=== PATIENT | female | born 1970 | race Caucasian/White ===

== ENCOUNTER → 2017-05-22 | Outpatient (CLI) | payer MEDICAID ==
[2017-05-22 08:33] LABS: CH 24.3; CHCM 29.8; HCT 37.2 % (34.0-46.0); HDW 2.38; HGB 11.6 gm/dL (11.4-16.0); Hypochromasia Marked; MCH 25.5 pg (25.0-35.0); MCHC 31.2 g/dL (31.0-37.0); MCV 81.8 fL (80.0-100.0); Mean Platelet Volume 6.4; RBC 4.55 m/uL (3.80-5.40); WBC 6.8 k/uL (3.8-10.6)
[2017-05-22 09:03] LABS: Hemoglobin A1C 5.5 % (4.2-6.1)
[2017-05-22 09:08] LABS: ALT 44 U/L (9-52); AST 29 U/L (14-36); Alkaline Phosphatase 67 U/L (38-126); Anion Gap 9 mmol/L; Blood Urea Nitrogen 11 mg/dL (7-17); Calcium 9.5 mg/dL (8.4-10.2); Carbon Dioxide 26 mmol/L (22-30); Chloride 104 mmol/L (98-107); Glucose 86 mg/dL (74-99); Non-African American GFR(MDRD) >60 (>60 ml/min/1.73 sqM); Potassium 4.7 mmol/L (3.5-5.1); Sodium 139 mmol/L (137-145); Total Bilirubin 0.8 mg/dL (0.2-1.3); Total Protein 7.7 g/dL (6.3-8.2)
== END | disposition home or self-care (01) ==
LOC: LABWHC1 08:01
PROVIDERS: ATTEND Physician Assistant
DX: R53.83 Other fatigue (principal)
CPT/HCPCS: 36415; 80053; 83036; 84443; 85027

== ENCOUNTER 2017-05-30 11:27 | Day surgery (SDC) | payer MEDICAID ==
[2017-05-29 09:38] VITALS: BMI 22.1
[~2017-05-30 11:27] MED LIST: LACTATED RINGERS 1,000 ML IV SCH
[2017-05-30 12:17] VITALS: RESP 16; TEMP 98.2
[2017-05-30] MEDS ORDERED: LIDOCAINE 1% 20 ML VIAL (10MG/ML) FOR IV START INTRADERMA ONE (12:21)
[2017-05-30] MEDS ORDERED: LIDOCAINE 1% INJ 10MG/ML (20 ML MDV) ONE (12:31)
[2017-05-30] MEDS ORDERED: PROPOFOL 10 MG/ML 20 ML VIAL IV ONE (12:31)
--- NOTE | 2017-05-30 13:00 | P.PCN ---
Date of Procedure: 05/30/17 Procedure(s) Performed: Brief history: Patient is a pleasant 46-year-old white female, scheduled for an elective upper endoscopy as well as colonoscopy as a part of evaluation of abdominal pain, chronic intermittent diarrhea with blood and mucus in the stools for the last several months duration. Procedure performed: Esophagogastroduodenoscopy with biopsy Colonoscopy with biopsy Preoperative diagnosis: Abdominal pain Chronic intermittent diarrhea and rectal bleeding Anesthesia: MAC Procedure: After informed consent was obtained from the patient was brought into the endoscopy unit and IV sedation was administered by anesthesia under continuous monitoring. Initially upper endoscopy was done. The Olympus GF 160 video endoscope was inserted inserted into the mouth and esophagus intubated without any difficulty and was gradually advanced into the stomach and duodenum and carefully examined. The bulb and second part of the duodenum appeared normal. Biopsies were done from the duodenum to rule out celiac disease. The scope was then withdrawn into the stomach adequately insufflated with air and upon careful examination the antrum had mild gastritis and biopsies were done from this area. The body, cardia and fundus appeared normal. The scope was then withdrawn into the esophagus. The GE junction was located at 40 cm to the incisors. It appeared regular with no erythema erosions or ulcerations. Rest of the esophagus appeared normal. Patient tolerated the procedure well. At this time the patient continued to remain sedation. Initial digital rectal examination was normal. Olympus CF 160 video colonoscope was then inserted into the rectum and gradually advanced to the cecum without any difficulty. Careful examination was performed as the scope was gradually being withdrawn. The prep was excellent. terminal ileum was intubated and 20 cm visualized and appeared normal. Biopsies were done from this area. The cecum, ascending colon, transverse colon, descending colon, sigmoid colon and rectum appeared normal. random biopsies were done from the ascending and descending colon to rule out microscope/collagenous colitis. Retroflexion was performed in the rectum and small internal hemorrhoid were noted. Patient tolerated the procedure well. Impression: 1. Upper endoscopy revealed mild antral gastritis, no evidence of esophagitis or peptic ulcer disease 2. Colonoscopy revealed small internal hemorrhoids, no evidence of colitis or colorectal neoplasia Recommendations: Findings of this examination were discussed with the patient as well as her family. She was advised to follow with the biopsy results. She'll be seen in office in 2 weeks.
[2017-05-30 13:37] VITALS: BP 122/80; PULSE 84
== END 2017-05-30 13:59 | disposition home or self-care (01) ==
LOC: ORWHC2ENDO 11:27
PROVIDERS: ATTEND Internal Medicine Gastroenterology
DX: K29.50 Unspecified chronic gastritis without bleeding (principal); K64.8 Other hemorrhoids; K52.9 Noninfective gastroenteritis and colitis, unspecified; Z72.0 Tobacco use; F39 Unspecified mood [affective] disorder; Z79.899 Other long term (current) drug therapy
CPT/HCPCS: 81025; 88305; 88342; 45380; 43239; J2001; J2704

== ENCOUNTER → 2017-08-30 | Outpatient (CLI) | payer MEDICAID ==
[2017-08-30 12:56] LABS: Anisocytosis Slight; HCT 36.2 % (34.0-46.0); HGB 10.6 gm/dL (11.4-16.0); Hypochromasia Marked; MCH 23.9 pg (25.0-35.0); MCHC 29.2 g/dL (31.0-37.0); MCV 81.8 fL (80.0-100.0); Mean Platelet Volume 7.2; Platelet Count 479 k/uL (150-450); RBC 4.42 m/uL (3.80-5.40); RDW 16.2 % (11.5-15.5); WBC 7.3 k/uL (3.8-10.6)
== END | disposition home or self-care (01) ==
LOC: LABMAIN 11:24
PROVIDERS: ATTEND Emergency Medicine
DX: Z09 Encounter for follow-up examination after completed treatment for conditions other than malignant neoplasm (principal); Z87.19 Personal history of other diseases of the digestive system
CPT/HCPCS: 36415; 85027

== ENCOUNTER 2017-09-06 05:47 | Observation (INO) | payer MEDICAID ==
[2017-09-05 08:29] VITALS: BMI 22.7
[~2017-09-06 05:47] MED LIST changes: -LACTATED RINGERS 1,000 ML IV SCH; +Pre Op ABX Message 1 EACH MISC MISCELLANE ONE
[2017-09-06] MEDS ORDERED: DEXAMETHASONE SOD PHOSPHATE 10 MG/ML 1 ML VIAL IV ONE ×2 (06:05→18:15)
[2017-09-06] MEDS ORDERED: HYDROmorphone 0.5 MG/0.5 ML SYRINGE IVP PRN ×2 (06:05→18:13)
[2017-09-06] MEDS ORDERED: LACTATED RINGERS 1,000 ML IV SCH (06:05)
[2017-09-06] MEDS ORDERED: ONDANSETRON 4 MG/2 ML VIAL IVP ONE ×2 (06:05→18:15)
[2017-09-06] MEDS ORDERED: LIDOCAINE 1% 20 ML VIAL (10MG/ML) FOR IV START INTRADERMA ONE (06:40)
[2017-09-06] MEDS ORDERED: SCOPOLAMINE 1.5MG/72HR PATCH TRANSDERM STA (07:03)
[2017-09-06 07:12] LABS: Hypochromasia Marked; MCH 24.2 pg (25.0-35.0); MCHC 30.8 g/dL (31.0-37.0); MCV 78.8 fL (80.0-100.0); Mean Platelet Volume 7.2; Platelet Count 432 k/uL (150-450); RBC 2.54 m/uL (3.80-5.40); RDW 15.9 % (11.5-15.5); WBC 5.3 k/uL (3.8-10.6)
[2017-09-06 07:16] LABS: HGB 6.2 gm/dL (11.4-16.0)
[2017-09-06] MEDS ORDERED: TEMAZEPAM 15 MG CAP PO PRN (07:30)
[2017-09-06] MEDS ORDERED: PROCHLORPERAZINE 5 MG TAB PO PRN (07:30)
--- NOTE | 2017-09-06 07:40 | P.GSHP ---
History of Present Illness H&P Date: 09/06/17 Chief Complaint: Anemia The patient has been having rectal bleeding with an arterial spurt since prior to . She was coming in for surgery today. She passed out yesterday. Her hemoglobin was rechecked this morning and was 6. Therefore due to the symptomatic anemia, we will transfuse her and proceed with surgery tomorrow. - Review of Systems All systems: negative Past Medical History Past Medical History: Asthma Additional Past Medical History / Comment(s): HX OF ASTHMA (distant), IBS, HEMORRHOIDS., Rectal bleeding, HIATAL HERNIA. History of Any Multi-Drug Resistant Organisms: None Reported Past Surgical History: Appendectomy, Breast Surgery, Cholecystectomy Additional Past Surgical History / Comment(s): MULTIPLE INFERTILITY SURGERIES, ( 5) ECTOPIC 'S & RECONSTRUCTIVE SURGERY, BREAST AUGMENTATION. Past Anesthesia/Blood Transfusion Reactions: Motion Sickness, Postoperative Nausea & Vomiting (PONV) Smoking Status: Current every day smoker - Past Family History Mother Family Medical History: No Reported History Medications and Allergies Home Medications Medication Instructions Recorded Confirmed Type Citalopram Hydrobromide [CeleXA] 20 mg PO HS 05/29/17 09/06/17 History LORazepam [Ativan] 0.5 mg PO HS 05/29/17 09/06/17 History Allergies Allergy/AdvReac Type Severity Reaction Status Date / Time No Known Allergies Allergy Verified 09/06/17 06:19 Surgical - Exam Osteopathic Statement: *. No significant issues noted on an osteopathic structural exam other than those noted in the History and Physical/Consult. Vital Signs Temp Pulse Resp BP Pulse Ox 98.1 F 70 16 112/67 99 09/06/17 06:17 09/06/17 06:17 09/06/17 06:17 09/06/17 06:17 09/06/17 06:17 - General Appears very pale well developed, well nourished, no distress - Eyes normal ocular movement - ENT no hearing loss - Neck trachea midline - Respiratory normal expansion, normal respiratory effort - Psychiatric oriented to time, oriented to person, oriented to place, speech is normal, memory intact Results - Labs 09/06/17 06:40 Abnormal Lab Results - Last 24 Hours (Table) 09/06/17 Range/Units 06:40 RBC 2.54 L (3.80-5.40) m/uL Hgb 6.2 L* D (11.4-16.0) gm/dL Hct 20.0 L* (34.0-46.0) % MCV 78.8 L (80.0-100.0) fL MCH 24.2 L (25.0-35.0) pg MCHC 30.8 L (31.0-37.0) g/dL RDW 15.9 H (11.5-15.5) % Assessment and Plan (1) Acute blood loss anemia Current Visit: Yes Status: Acute Code(s): D62 - ACUTE POSTHEMORRHAGIC ANEMIA SNOMED Code(s): 084534979 (2) Hemorrhoids with complication Current Visit: Yes Status: Acute Code(s): K64.8 - OTHER HEMORRHOIDS SNOMED Code(s): 59736934 Plan: Since the patient is symptomatic, we will transfuse her. Proceed with surgery tomorrow. DVT and ulcer prophylaxis. Further recommendations to follow.
[2017-09-06] MEDS: SODIUM CHLORIDE 0.9% 1,000 ML IV SCH (07:46)
[2017-09-06] MEDS: FAMOTIDINE 20 MG TAB PO SCH (09:25)
[2017-09-06] MEDS ORDERED: ONDANSETRON 4 MG/2 ML VIAL IVP PRN (18:13)
[2017-09-06 20:04] LABS: HCT 25.9 % (34.0-46.0); Hypochromasia Moderate; MCH 25.4 pg (25.0-35.0); MCHC 30.9 g/dL (31.0-37.0); MCV 82.2 fL (80.0-100.0); Mean Platelet Volume 6.6; Platelet Count 420 k/uL (150-450); Poikilocytosis Moderate; RBC 3.16 m/uL (3.80-5.40); RDW 14.7 % (11.5-15.5); WBC 7.8 k/uL (3.8-10.6)
[2017-09-07] MEDS: FAMOTIDINE 20 MG TAB PO SCH ×2 (00:29→09:48)
[2017-09-07 07:21] LABS: Basophils % (A) 0 %; Eosinophils % (A) 1 %; HCT 27.4 % (34.0-46.0); HGB 8.7 gm/dL (11.4-16.0); Hypochromasia Slight; Lymphocytes # (A) 2.5 k/uL (1.0-4.8); Lymphocytes % (A) 28 %; MCH 25.9 pg (25.0-35.0); MCHC 31.7 g/dL (31.0-37.0); MCV 81.7 fL (80.0-100.0); Mean Platelet Volume 7.8; Monocytes # (A) 0.8 k/uL (0-1.0); Monocytes % (A) 9 %; Neutrophils # (A) 5.2 k/uL (1.3-7.7); Neutrophils % (A) 59 %; Platelet Count 377 k/uL (150-450); Poikilocytosis Moderate; RBC 3.35 m/uL (3.80-5.40); RDW 14.7 % (11.5-15.5); WBC 8.9 k/uL (3.8-10.6)
[2017-09-07] MEDS: LACTATED RINGERS 1,000 ML IV SCH ×2 (08:04→10:48)
[2017-09-07] MEDS ORDERED: DEXAMETHASONE SOD PHOS (MDV) 100 MG/10 ML VIAL IVP ONE (08:05)
[2017-09-07] MEDS ORDERED: BUPIVACAINE LIPOSOME/PF 1.3% 20 ML, SODIUM CHLORIDE 0.9% 10 ML MISCELLANE STA ×2 (08:35)
[2017-09-07] MEDS ORDERED: MIDAZOLAM 2 MG/2 ML VIAL ONE (08:45)
[2017-09-07] MEDS ORDERED: SUCCINYLCHOLINE CHLORIDE 100 MG/5 ML SYR IV ONE (08:45)
[2017-09-07] MEDS ORDERED: LIDOCAINE 1% INJ 10MG/ML (20 ML MDV) ONE (08:45)
[2017-09-07] MEDS ORDERED: PROPOFOL 10 MG/ML 20 ML VIAL IV ONE (08:45)
[2017-09-07] MEDS ORDERED: fentaNYL (PF) 50 MCG/ML 2 ML AMP ONE (08:45)
[2017-09-07] MEDS ORDERED: ONDANSETRON 4 MG/2 ML VIAL ONE (08:45)
[2017-09-07] MEDS ORDERED: GELATIN SPONGE,ABSORB (LARGE) 1 EACH SPONGE TOPICAL ONE (09:13)
[2017-09-07] MEDS ORDERED: BUPIVACAINE-EPI 0.5%-1:200,000 10 ML VIAL SQ ONE ×2 (09:15→09:32)
[2017-09-07] MEDS ORDERED: HYDROmorphone 1 MG/ML 1 ML SYRINGE IVP PRN (10:00)
[2017-09-07] MEDS ORDERED: HYDROcodone/APAP 5-325MG 1 EACH TAB PO PRN ×2 (10:00→10:19)
[2017-09-07] MEDS ORDERED: NALOXONE 0.4 MG/ML 1 ML VIAL IV PRN (10:00)
--- NOTE | 2017-09-07 10:00 | P.OP ---
Date of Procedure: 09/07/17 Preoperative Diagnosis: internal and external hemorrhoids, bleeding hemorrhoids, blood loss anemia Postoperative Diagnosis: same Procedure(s) Performed: rectal exam under anesthesia,M arterectomy with control of bleeding Anesthesia: JOSAFAT Surgeon: Michelle Cope Estimated Blood Loss (ml): 20 Pathology: other (Hemorrhoids) Condition: stable Disposition: PACU Indications for Procedure: the patient presented with active hemorrhoidal bleeding which started acutely. She developed acute blood loss anemia. She was going to have surgery on however was very anemic. She was therefore transfused overnight. Operative Findings: the patient was taken to the operative suite where she is prepped and draped in the usual sterile manner under a general endotracheal anesthetic. Digital rectal exam was carried out. She had some grade 3 hemorrhoids in the right portion of the anus and posteriorly.on the left anterior side, there was a internal bleeding right. There was a small mucosal defect with active ozzing. that hemorrhoidal pillar was grasped with an was clamped. It was then removed with harmonic scissors. The mucosal defect was reapproximated with some 3-0 Monocryl. The mucosa and skin defects were then closed with 3-0 chromic. Given the very large prolapsed pillar on the right posterior lateral portion, was felt that needed to be removed. It was removed in a similar manner. A perianal and pudendal block was carried out using experal and quarter percent Marcaine with epinephrine. she tolerated the procedure without difficulty and was taken recovery room in satisfactory condition. According to or personnel all counts were correct.
[2017-09-07] MEDS ORDERED: MEPERIDINE 50 MG/ML SYRINGE IVP ONE (10:24)
[2017-09-07] MEDS ORDERED: diphenhydrAMINE 50 MG/ML 1 ML VIAL IVP ONE (10:24)
[2017-09-07] MEDS ORDERED: LACTATED RINGERS 1,000 ML IV ONE (10:48)
[2017-09-07] MEDS: SODIUM CHLORIDE 0.9% 1,000 ML IV SCH (10:49)
[2017-09-07 14:39] VITALS: BP 106/67; PULSE 65; RESP 20; TEMP 98.4
--- NOTE | 2017-09-07 17:38 | P.DS ---
Providers Date of admission: 09/06/17 07:35 Expected date of discharge: 09/07/17 Attending physician: Michelle Cope Primary care physician: Lion Rondon - Discharge Diagnosis(es) (1) Acute blood loss anemia Current Visit: Yes Status: Acute (2) Hemorrhoids with complication Current Visit: Yes Status: Acute Hospital Course: The patient had presented for elective rectal exam and hemorrhoidectomy due to actively bleeding hemorrhoids. She was found to be markedly anemic in the preop area. She was therefore admitted and underwent transfusion. She was subsequently taken to the OR where she underwent a hemorrhoidectomy. There was an area of active bleeding noted which was controlled. She was doing well the evening of surgery and felt to be stable for discharge Patient Condition at Discharge: Good Plan - Discharge Summary Discharge Rx Participant: Yes New Discharge Prescriptions: New HYDROcodone/APAP 5-325MG [[place] 5-325] 1 - 2 tab PO Q4H PRN #30 tab PRN Reason: Pain No Action LORazepam [Ativan] 0.5 mg PO HS Citalopram Hydrobromide [CeleXA] 20 mg PO HS Discharge Medication List Citalopram Hydrobromide [CeleXA] 20 mg PO HS 05/29/17 [History] LORazepam [Ativan] 0.5 mg PO HS 05/29/17 [History] HYDROcodone/APAP 5-325MG [[place] 5-325] 1 - 2 tab PO Q4H PRN #30 tab 09/07/17 [Rx ] Follow up Appointment(s)/Referral(s): Michelle Cope DO [Doctor of Osteopathic Medicine] - 2 Weeks Activity/Diet/Wound Care/Special Instructions: You may shower. Take a fiber supplement daily. Take a stool softener daily if constipated from the pain medications. Adjust the fiber and stool softener so you have 1-2 soft bowel movements daily. Expect some bleeding for 1-2 weeks. Use a wet wipe after bowel movement and Pat dry. You can use some dibucaine ointment to clean dry skin 3-4 times a day.(This is available without a prescription [facility] outpatient pharmacy). You may sit in a tub of warm water as needed for pain, especially after a bowel movement. Follow -up in the office in 2 weeks. Call me if questions or concerns. Expect to be off work for 2-4 weeks. Discharge Disposition: HOME SELF-CARE
[2017-09-07] MEDS ORDERED: CITALOPRAM HYDROBROMIDE 20 MG TAB PO SCH (21:00)
[2017-09-07] MEDS ORDERED: LORazepam 0.5 MG TAB PO SCH (21:00)
--- NOTE | 2017-09-13 13:12 | CDI ---
Outpatient Documentation Clarification Form Date: 09/13/2017 Roadway Engineer Name: ITALIA Mccann Phone: If you have question, contact Marianne Robison [employer] Assembler at [phone] M-F 8:30 am to 6pm. Patient Name: Rajani Hebert Admit Date: 09/06/17 Discharge Date: 09/07/17 ATTENTION: The Clinical Documentation Specialists (CDI) and [facility] Coding Staff appreciate your assistance in clarifying documentation. Please respond to the clarification below the line at the bottom and electronically sign. The CDI & [facility] Coding staff will review the response and follow-up if needed. Please note: Queries are made part of the Legal Health Record. If you have any questions, please contact the author of this message via ITS or call the Nut [employer] Bolt Assembler. Dr. Cope Ms Hebert was seen in the OR on 09/07 for treatment of hemorrhoids. Patient is noted as preoperatively and postoperatively to have internal and external hemorrhoids. Procedure performed is noted to be hemorrhoidectomy with control of bleeding. Further clarification is needed for proper reporting purposes. Please clarify what hemorrhoids were treated: *Internal only *External only *Internal AND External Please also clarify if the hemorrhoidectomy performed was on: *Single column/group *Two or more columns/groups Please answer BOTH questions. Thank you very much for your time! Internal external circumferential, 2 pillars removed MTDD
== END 2017-09-07 18:09 | disposition home or self-care (01) ==
LOC: OR 05:47 → 3SUR 07:35
PROVIDERS: ADMIT Surgery; ATTEND Surgery
DX: K64.2 Third degree hemorrhoids (principal); D62 Acute posthemorrhagic anemia; J45.909 Unspecified asthma, uncomplicated; Z79.899 Other long term (current) drug therapy
CPT/HCPCS: 46260; 36430; 96374; 96375; 81025; 86900; 86901; 88304; 85025; 85027; 86850; 86920; G0378 ×2; P9016; J2250; J1200; J1100 ×2; J2175; J2405 ×2; J2001; J3010; J0330; C9290; J2704

== ENCOUNTER 2017-09-10 20:02 | Emergency (ER) | payer MEDICAID ==
[2017-09-10] MEDS ORDERED: SODIUM CHLORIDE 0.9% 1,000 ML IV STA (21:01)
[2017-09-10] MEDS ORDERED: ONDANSETRON 4 MG/2 ML VIAL IVP STA (21:01)
[2017-09-10] MEDS ORDERED: HYDROmorphone 1 MG/ML 1 ML SYRINGE IVP STA (21:01)
[2017-09-10 21:13] LABS: Anisocytosis Slight; Basophils # (A) 0.1 k/uL (0-0.2); Basophils % (A) 0 %; Eosinophils # (A) 0.2 k/uL (0-0.7); Eosinophils % (A) 2 %; HCT 30.5 % (34.0-46.0); HGB 9.5 gm/dL (11.4-16.0); Hypochromasia Moderate; Lymphocytes # (A) 1.2 k/uL (1.0-4.8); Lymphocytes % (A) 10 %; MCH 25.6 pg (25.0-35.0); MCHC 31.2 g/dL (31.0-37.0); Mean Platelet Volume 7.5; Monocytes # (A) 0.9 k/uL (0-1.0); Monocytes % (A) 7 %; Neutrophils # (A) 9.7 k/uL (1.3-7.7); Neutrophils % (A) 80 %; Platelet Count 414 k/uL (150-450); Poikilocytosis Slight; RBC 3.72 m/uL (3.80-5.40); RDW 16.9 % (11.5-15.5); WBC 12.2 k/uL (3.8-10.6)
[2017-09-10 21:22] LABS: INR 0.9 (<1.2); Partial Thromboplastin Time 23.3 sec (22.0-30.0); Prothrombin Time 9.4 sec (9.0-12.0)
[2017-09-10 21:23] LABS: ALT 45 U/L (9-52); AST 24 U/L (14-36); Albumin 3.6 g/dL (3.5-5.0); Alkaline Phosphatase 71 U/L (38-126); Anion Gap 9 mmol/L; Blood Urea Nitrogen 8 mg/dL (7-17); Calcium 9.6 mg/dL (8.4-10.2); Carbon Dioxide 26 mmol/L (22-30); Chloride 104 mmol/L (98-107); Glucose 110 mg/dL (74-99); Potassium 4.1 mmol/L (3.5-5.1); Sodium 139 mmol/L (137-145); Total Bilirubin 0.5 mg/dL (0.2-1.3); Total Protein 6.3 g/dL (6.3-8.2)
--- NOTE | 2017-09-10 21:39 | ED ---
Weakness HPI - General Chief complaint: Weakness Stated complaint: Post Op/Weakness Time Seen by Provider: 09/10/17 20:24 Source: patient Mode of arrival: ambulatory Limitations: no limitations - History of Present Illness Initial comments: 47-year-old female patient presents to the emergency department today with complaints of generalized weakness and pain after a surgical procedure. Patient reports that she underwent hemorrhoidectomy on 09/07/[address] Cope. Patient has had problems with hemorrhoids in the past however with this episode she started having rectal bleeding on 08/29/2017. She states that the bleeding was a steady stream from her rectum. States that she did go to the emergency department at that time for evaluation and was discharged to follow up with her surgeon. Sates that after that visit she became progressively weaker, she did contact Dr. Cope was scheduled have surgery on 09/07. Patient states that she had a syncopal event the morning of her surgery and was found to have a hemoglobin of 6.2. It was found that the patient did have arterial bleed from the rectum which was repaired during the procedure. Patient states that she has had severe pain to her rectum since the surgery. States that she did have some minor bleeding today. She is also reporting lower abdominal pain and pressure. She states that she has not had a bowel movement since the procedure. She reports that she is feeling weak, shaky, and has had intermittent episodes of racing heart, especially when she stands up. She is reporting nausea with this, however denies any vomiting. Patient denies any recent rash, fever, chills, shortness breath, chest pain, back pain, numbness, tingling, dizziness, weakness, hematuria, dysuria, urinary urgency, urinary frequency, headache, visual changes, or any other complaints. - Related Data Home Medications Medication Instructions Recorded Confirmed Citalopram Hydrobromide [CeleXA] 20 mg PO HS 05/29/17 09/10/17 Previous Rx's Medication Instructions Recorded HYDROcodone/APAP 5-325MG [[place] 1 - 2 tab PO Q4H PRN #30 tab 09/07/17 5-325] Allergies Allergy/AdvReac Type Severity Reaction Status Date / Time No Known Allergies Allergy Verified 09/10/17 20:25 Review of Systems ROS Statement: Those systems with pertinent positive or pertinent negative responses have been documented in the HPI. ROS Other: All systems not noted in ROS Statement are negative. Past Medical History Past Medical History: Asthma Additional Past Medical History / Comment(s): HX OF ASTHMA (distant), IBS, HEMORRHOIDS., Rectal bleeding, HIATAL HERNIA. History of Any Multi-Drug Resistant Organisms: None Reported Past Surgical History: Appendectomy, Breast Surgery, Cholecystectomy Additional Past Surgical History / Comment(s): MULTIPLE INFERTILITY SURGERIES, ( 5) ECTOPIC 'S & RECONSTRUCTIVE SURGERY, BREAST AUGMENTATION. Past Anesthesia/Blood Transfusion Reactions: Motion Sickness, Postoperative Nausea & Vomiting (PONV) Past Psychological History: Anxiety, Depression Smoking Status: Current every day smoker Past Alcohol Use History: Occasional Past Drug Use History: None Reported - Past Family History Mother Family Medical History: No Reported History General Exam Limitations: no limitations General appearance: alert, in no apparent distress, other (Well-developed, well- nourished adult female patient in no acute distress. Vital signs upon presentation are temperature 98.3F, pulse 102, respirations 16, blood pressure 130/70, pulse ox 97% on room air.) Eye exam: Present: normal appearance, PERRL, EOMI. Absent: scleral icterus, conjunctival injection, periorbital swelling ENT exam: Present: normal exam, normal oropharynx, mucous membranes moist Respiratory exam: Present: normal lung sounds bilaterally. Absent: respiratory distress, wheezes, rales, rhonchi, stridor Cardiovascular Exam: Present: regular rate, normal rhythm, normal heart sounds. Absent: systolic murmur, diastolic murmur, rubs, gallop, clicks GI/Abdominal exam: Present: soft, tenderness (Lower abdominal tenderness), normal bowel sounds. Absent: distended, guarding, rebound, rigid Rectal exam: Present: other (Minor swelling surrounding the anus, perianal ecchymosis noted, purple in color) Neurological exam: Present: alert, oriented X3, CN II-XII intact Psychiatric exam: Present: normal affect, normal mood Skin exam: Present: warm, dry, intact, pallor. Absent: rash Course Vital Signs 09/10/17 09/10/17 09/10/17 20:07 20:50 21:47 Temperature 98.3 F Pulse Rate 102 H 80 Pulse Rate [ 102 H Coal Hauler ] Respiratory 16 20 Rate Blood Pressure 130/70 124/58 O2 Sat by Pulse 97 99 Oximetry 09/10/17 09/11/17 23:29 00:19 Temperature 97.8 F 97.3 F L Pulse Rate 66 68 Pulse Rate [ [place] ] Respiratory 18 18 Rate Blood Pressure 114/62 118/63 O2 Sat by Pulse 97 100 Oximetry Medical Decision Making - Medical Decision Making 47-year-old female patient presented to the emergency department today with complaints of lower abdominal pain, generalized weakness, and nausea. Physical examination did reveal some lower abdominal tenderness. Examination of the surgical site did show some perianal ecchymosis however no evidence of erythema or bleeding at this time. Labs reviewed and did reveal a white blood cell count of 12.2, hemoglobin of 9.5 improved from 8.7 on 09/07/2017. Urinalysis is unremarkable. Lactic acid was 1.1. KUB x-ray of the abdomen showed overall nonobstructive bowel gas pattern. CT of the abdomen and pelvis with contrast was obtained and showed no acute abnormalities other than some bilateral ovarian cysts. I did discuss results with the patient. She feels comfortable being discharged home at this time. I did instruct her to follow-up with her surgeon as soon as possible. She is instructed to call Dr. Cope tomorrow for further evaluation and direction regarding constipation. She is instructed to return here immediately for any new, worsening, or concerning symptoms. She verbalizes understanding and agrees with this plan. - Lab Data Result diagrams: 09/10/17 20:58 09/10/17 20:58 Lab Results 09/10/17 09/10/17 09/10/17 Range/Units 20:58 20:58 20:58 WBC 12.2 H (3.8-10.6) k/uL RBC 3.72 L (3.80-5.40) m/uL Hgb 9.5 L (11.4-16.0) gm/dL Hct 30.5 L (34.0-46.0) % MCV 82.0 (80.0-100.0) fL MCH 25.6 (25.0-35.0) pg MCHC 31.2 (31.0-37.0) g/dL RDW 16.9 H (11.5-15.5) % Plt Count 414 (150-450) k/uL Neutrophils % 80 % Lymphocytes % 10 % Monocytes % 7 % Eosinophils % 2 % Basophils % 0 % Neutrophils # 9.7 H (1.3-7.7) k/uL Lymphocytes # 1.2 (1.0-4.8) k/uL Monocytes # 0.9 (0-1.0) k/uL Eosinophils # 0.2 (0-0.7) k/uL Basophils # 0.1 (0-0.2) k/uL Hypochromasia Moderate Poikilocytosis Slight Anisocytosis Slight PT 9.4 (9.0-12.0) sec INR 0.9 (<1.2) APTT 23.3 (22.0-30.0) sec Sodium 139 (137-145) mmol/L Potassium 4.1 (3.5-5.1) mmol/L Chloride 104 (98-107) mmol/L Carbon Dioxide 26 (22-30) mmol/L Anion Gap 9 mmol/L BUN 8 (7-17) mg/dL Creatinine 0.70 (0.52-1.04) mg/dL Est GFR (MDRD) Af Amer >60 (>60 ml/min/1.73 sqM) Est GFR (MDRD) Non-Af >60 (>60 ml/min/1.73 sqM) Glucose 110 H (74-99) mg/dL Plasma Lactic Acid [place] (0.7-2.0) mmol/L Calcium 9.6 (8.4-10.2) mg/dL Total Bilirubin 0.5 (0.2-1.3) mg/dL AST 24 (14-36) U/L ALT 45 (9-52) U/L Alkaline Phosphatase 71 (38-126) U/L Total Protein 6.3 (6.3-8.2) g/dL Albumin 3.6 (3.5-5.0) g/dL Urine Color Urine Appearance (Clear) Urine pH (5.0-8.0) Ur Specific [place] (1.001-1.035) Urine Protein (Negative) Urine Glucose (UA) (Negative) Urine Ketones (Negative) Urine Blood (Negative) Urine Nitrite (Negative) Urine Bilirubin (Negative) Urine Urobilinogen (<2.0) mg/dL Ur Leukocyte Esterase (Negative) Urine RBC (0-5) /hpf Urine WBC (0-5) /hpf Ur Squamous Epith Cells (0-4) /hpf Urine Bacteria (None) /hpf Hyaline Casts (0-2) /lpf Urine Mucus (None) /hpf 09/10/17 09/10/17 Range/Units 21:17 22:45 WBC (3.8-10.6) k/uL RBC (3.80-5.40) m/uL Hgb (11.4-16.0) gm/dL Hct (34.0-46.0) % MCV (80.0-100.0) fL MCH (25.0-35.0) pg MCHC (31.0-37.0) g/dL RDW (11.5-15.5) % Plt Count (150-450) k/uL Neutrophils % % Lymphocytes % % Monocytes % % Eosinophils % % Basophils % % Neutrophils # (1.3-7.7) k/uL Lymphocytes # (1.0-4.8) k/uL Monocytes # (0-1.0) k/uL Eosinophils # (0-0.7) k/uL Basophils # (0-0.2) k/uL Hypochromasia Poikilocytosis Anisocytosis PT (9.0-12.0) sec INR (<1.2) APTT (22.0-30.0) sec Sodium (137-145) mmol/L Potassium (3.5-5.1) mmol/L Chloride (98-107) mmol/L Carbon Dioxide (22-30) mmol/L Anion Gap mmol/L BUN (7-17) mg/dL Creatinine (0.52-1.04) mg/dL Est GFR (MDRD) Af Amer (>60 ml/min/1.73 sqM) Est GFR (MDRD) Non-Af (>60 ml/min/1.73 sqM) Glucose (74-99) mg/dL Plasma Lactic Acid [place] 1.1 (0.7-2.0) mmol/L Calcium (8.4-10.2) mg/dL Total Bilirubin (0.2-1.3) mg/dL AST (14-36) U/L ALT (9-52) U/L Alkaline Phosphatase (38-126) U/L Total Protein (6.3-8.2) g/dL Albumin (3.5-5.0) g/dL Urine Color Yellow Urine Appearance Cloudy H (Clear) Urine pH 7.0 (5.0-8.0) Ur Specific [place] 1.010 (1.001-1.035) Urine Protein Negative (Negative) Urine Glucose (UA) Negative (Negative) Urine Ketones Negative (Negative) Urine Blood Moderate H (Negative) Urine Nitrite Negative (Negative) Urine Bilirubin Negative (Negative) Urine Urobilinogen <2.0 (<2.0) mg/dL Ur Leukocyte Esterase Trace H (Negative) Urine RBC 2 (0-5) /hpf Urine WBC 4 (0-5) /hpf Ur Squamous Epith Cells 16 H (0-4) /hpf Urine Bacteria Occasional H (None) /hpf Hyaline Casts 3 H (0-2) /lpf Urine Mucus Many H (None) /hpf - Radiology Data Radiology results: report reviewed, image reviewed Two-view x-ray of the abdomen shows no sign of intestinal obstruction or pneumoperitoneum. Fecal pattern is normal. There are clips from cholecystectomy. Lung bases are clear. There are no pathologic calcifications. Impression by Dr. Banks shows nonacute abdomen. CT of the abdomen and pelvis with contrast was performed. Report was reviewed in its entirety. Impression by Dr. Banks shows bilateral ovarian cysts. No sign of acute abdomen and pelvis. No evidence of a postoperative fluid collection in this patient with recent hemorrhoidectomy. Disposition Clinical Impression: Abdominal pain, Weakness Disposition: HOME SELF-CARE Condition: Good Instructions: Weakness (ED), Abdominal Pain (ED) Additional Instructions: [place] fluids. Take medications as directed. Follow-up with her surgeon as soon as possible. Return here immediately for any new, worsening, or concerning symptoms. Referrals: Lion Rondon Jr, DO [Primary Care Provider] - 1-2 days Time of Disposition: 00:06
--- NOTE | 2017-09-10 22:02 | XR ---
EXAMINATION TYPE: XR KUB DATE OF EXAM: 09/10/2017 COMPARISON: NONE HISTORY: Postop bleeding TECHNIQUE: 2 views FINDINGS: There is no sign of intestinal obstruction or pneumoperitoneum. Fecal pattern is normal. Th ere are clips from cholecystectomy. Lung bases are clear. There are no pathologic calcifications. IMPRESSION: Nonacute abdomen.
[2017-09-10] MEDS ORDERED: RX INFO: IV CONTRAST WAS GIVEN 1 EACH MISC MISCELLANE PRN (22:52)
[2017-09-10 22:57] LABS: Appearance,Urine Cloudy (Clear); Bacteria,Urine Occasional /hpf; Bilirubin,Urine Negative (Negative); Blood,Urine Moderate (Negative); Color,Urine Yellow; Glucose,Urine (UA) Negative (Negative); Hyaline Casts,Urine 3 /lpf (0-2); Ketones,Urine Negative (Negative); Leukocyte Esterase,Urine Trace (Negative); Mucus,Urine Many /hpf; Nitrite,Urine Negative (Negative); Protein,Urine Negative (Negative); RBC,Urine 2 /hpf (0-5); Squamous Epithelial Cell,Urine 16 /hpf (0-4); Urobilinogen,Urine <2.0 mg/dL (<2.0); WBC,Urine 4 /hpf (0-5)
--- NOTE | 2017-09-10 23:18 | CT ---
EXAMINATION TYPE: CT abdomen pelvis w con DATE OF EXAM: 09/10/2017 COMPARISON: NONE HISTORY: weakness post op pain CT DLP: 477.20 mGycm Automated exposure control for dose reduction was used. TECHNIQUE: Helical acquisition of images was performed from the lung bases through the pelvis. CONTRAST: Performed without Oral Contrast and with IV Contrast, patient injected with 100 mL of Omnipaque 300. FINDINGS: Lung bases are clear. There is no pleural effusion. Liver spleen pancreas appear normal. There are cl ips from cholecystectomy. There is no adrenal mass. Kidneys show satisfactory contrast opacification. There is no hydronephrosis. There is no retroperitoneal adenopathy. Ureters are not dilated. There i s no ascites. Uterus is anteverted. Bladder distends smoothly. There is no evidence of a solid pelvic mass. There is a 2 cm cyst on the left ovary. There are 2 cysts on the right ovary that measure up t o 2 cm. I see no intestinal wall thickening. There are no dilated loops. Appendix is not seen. There is no sign of appendicitis. I see no bony destructive process. IMPRESSION: BILATERAL OVARIAN CYSTS. NO SIGN OF ACUTE ABDOMEN AND PELVIS. NO EVIDENCE OF A POSTOPERATIVE FLUID CO LLECTION IN THIS PATIENT WITH RECENT HEMORRHOIDECTOMY.
[2017-09-10 23:30] VITALS: RESP 18
[2017-09-11 00:26] VITALS: BP 118/63; PULSE 68; TEMP 97.3
== END 2017-09-11 00:19 | disposition home or self-care (01) ==
LOC: EC 20:02
DX: R10.30 Lower abdominal pain, unspecified (principal); R53.1 Weakness; R55 Syncope and collapse; R11.0 Nausea; N83.202 Unspecified ovarian cyst, left side; N83.201 Unspecified ovarian cyst, right side; F32.9 Major depressive disorder, single episode, unspecified; F41.9 Anxiety disorder, unspecified; F17.200 Nicotine dependence, unspecified, uncomplicated; Z79.899 Other long term (current) drug therapy; Z90.49 Acquired absence of other specified parts of digestive tract; Z98.890 Other specified postprocedural states
CPT/HCPCS: 36415; 80053; 83605; 85025; 85610; 85730; 81001; 74018; 74177; 99285; 96374; 96375; 96361 ×3; J2405; J1170; Q9967

== ENCOUNTER → 2017-09-20 | Outpatient (CLI) | payer MEDICAID ==
[2017-09-20 16:34] LABS: Anisocytosis Slight; Basophils # (A) 0.1 k/uL (0-0.2); Basophils % (A) 1 %; Eosinophils # (A) 0.2 k/uL (0-0.7); Eosinophils % (A) 2 %; HCT 34.3 % (34.0-46.0); Hypochromasia Marked; Lymphocytes # (A) 2.3 k/uL (1.0-4.8); Lymphocytes % (A) 24 %; MCH 24.4 pg (25.0-35.0); MCHC 29.3 g/dL (31.0-37.0); MCV 83.1 fL (80.0-100.0); Mean Platelet Volume 7.3; Monocytes # (A) 0.5 k/uL (0-1.0); Monocytes % (A) 6 %; Neutrophils # (A) 6.2 k/uL (1.3-7.7); Neutrophils % (A) 65 %; Platelet Count 579 k/uL (150-450); RBC 4.12 m/uL (3.80-5.40); WBC 9.6 k/uL (3.8-10.6)
== END | disposition home or self-care (01) ==
LOC: LABWHC1 15:57
PROVIDERS: ATTEND Surgery
DX: D64.9 Anemia, unspecified (principal)
CPT/HCPCS: 36415; 85025

== ENCOUNTER → 2017-09-26 | Outpatient (CLI) | payer MEDICAID ==
[2017-09-26 13:45] LABS: Anisocytosis Slight; Basophils # (A) 0.1 k/uL (0-0.2); Basophils % (A) 1 %; Eosinophils # (A) 0.2 k/uL (0-0.7); Eosinophils % (A) 3 %; HCT 35.6 % (34.0-46.0); HGB 10.3 gm/dL (11.4-16.0); Hypochromasia Marked; Lymphocytes # (A) 1.5 k/uL (1.0-4.8); Lymphocytes % (A) 23 %; MCH 24.1 pg (25.0-35.0); MCV 83.1 fL (80.0-100.0); Mean Platelet Volume 7.2; Monocytes # (A) 0.4 k/uL (0-1.0); Monocytes % (A) 6 %; Neutrophils # (A) 4.2 k/uL (1.3-7.7); Neutrophils % (A) 65 %; Platelet Count 680 k/uL (150-450); RBC 4.28 m/uL (3.80-5.40); RDW 16.8 % (11.5-15.5); WBC 6.5 k/uL (3.8-10.6)
[2017-09-26 14:16] LABS: T4, Free (Free Thyroxine) 1.08 ng/dL (0.78-2.19)
[2017-09-26 19:45] LABS: Folate, Serum 14.2 ng/mL; Iron Saturation 3.22 (12.00-45.00); Vitamin D 25 Hydroxy 10.5 ng/mL (30.0-100.0)
== END | disposition home or self-care (01) ==
LOC: LABWHC1 13:27
PROVIDERS: ATTEND Family Medicine
DX: D50.0 Iron deficiency anemia secondary to blood loss (chronic) (principal)
CPT/HCPCS: 36415; 82306; 82607; 82728; 82746; 83540; 83550; 84439; 84443; 85025

== ENCOUNTER → 2017-12-27 | Outpatient (CLI) | payer MEDICAID ==
[2017-12-27 11:04] LABS: Anisocytosis Slight; Basophils # (A) 0.1 k/uL (0-0.2); Basophils % (A) 1 %; Eosinophils # (A) 0.3 k/uL (0-0.7); Eosinophils % (A) 5 %; HGB 12.9 gm/dL (11.4-16.0); Hypochromasia Slight; Lymphocytes # (A) 1.5 k/uL (1.0-4.8); Lymphocytes % (A) 25 %; MCH 25.2 pg (25.0-35.0); MCHC 30.8 g/dL (31.0-37.0); MCV 81.6 fL (80.0-100.0); Mean Platelet Volume 7.2; Monocytes # (A) 0.5 k/uL (0-1.0); Monocytes % (A) 9 %; Neutrophils # (A) 3.6 k/uL (1.3-7.7); Neutrophils % (A) 59 %; Platelet Count 401 k/uL (150-450); RBC 5.14 m/uL (3.80-5.40); RDW 16.3 % (11.5-15.5); WBC 6.1 k/uL (3.8-10.6)
== END | disposition home or self-care (01) ==
LOC: LABWHC1 10:34
PROVIDERS: ATTEND Surgery
DX: D64.9 Anemia, unspecified (principal)
CPT/HCPCS: 36415; 85025

== ENCOUNTER 2018-02-07 22:01 | Emergency (ER) | payer MEDICAID, OTHER ==
[2018-02-07 22:06] VITALS: BP 123/63; PULSE 70; RESP 18; TEMP 98.6
--- NOTE | 2018-02-07 23:19 | ED ---
General Adult HPI - General Chief complaint: Needlestick/Exposure Stated complaint: [facility] Time Seen by Provider: 02/07/18 22:07 Source: patient, RN notes reviewed Mode of arrival: ambulatory Limitations: no limitations - History of Present Illness Initial comments: 39-year-old female presents to the emergency department for a chief complaint of needle stick injury in the right thumb one hour ago. Patient was drawing blood here in the emergency department when it occurred. Patient denies any other injuries or needle sticks. Patient denies any symptoms at this time. Patient has no other complaints at this time including shortness of breath, chest pain, abdominal pain, nausea or vomiting, headache, or visual changes. - Related Data Home Medications Medication Instructions Recorded Confirmed Citalopram Hydrobromide [CeleXA] 20 mg PO HS 05/29/17 02/07/18 Allergies Allergy/AdvReac Type Severity Reaction Status Date / Time No Known Allergies Allergy Verified 02/07/18 22:03 Review of Systems ROS Statement: Those systems with pertinent positive or pertinent negative responses have been documented in the HPI. ROS Other: All systems not noted in ROS Statement are negative. Past Medical History Past Medical History: Asthma Additional Past Medical History / Comment(s): HX OF ASTHMA (distant), IBS, HEMORRHOIDS., Rectal bleeding, HIATAL HERNIA. History of Any Multi-Drug Resistant Organisms: None Reported Past Surgical History: Appendectomy, Breast Surgery, Cholecystectomy Additional Past Surgical History / Comment(s): MULTIPLE INFERTILITY SURGERIES, ( 5) ECTOPIC 'S & RECONSTRUCTIVE SURGERY, BREAST AUGMENTATION. Past Anesthesia/Blood Transfusion Reactions: Motion Sickness, Postoperative Nausea & Vomiting (PONV) Past Psychological History: Anxiety, Depression Smoking Status: Current every day smoker Past Alcohol Use History: Occasional Past Drug Use History: None Reported - Past Family History Mother Family Medical History: No Reported History General Exam Limitations: no limitations General appearance: alert, in no apparent distress Head exam: Present: atraumatic, normocephalic, normal inspection Respiratory exam: Present: normal lung sounds bilaterally. Absent: respiratory distress, wheezes, rales, rhonchi, stridor Cardiovascular Exam: Present: regular rate, normal rhythm, normal heart sounds. Absent: systolic murmur, diastolic murmur, rubs, gallop, clicks Extremities exam: Present: other (Patient has a small needle stick injury to the right thumb. No signs of infection. No cellulitic changes. Neurovascular intact with radial pulses 2+.) Course Vital Signs 02/07/18 22:03 Temperature 98.6 F Pulse Rate 70 Respiratory 18 Rate Blood Pressure 123/63 O2 Sat by Pulse 95 Oximetry Medical Decision Making - Medical Decision Making 39-year-old female since to the emergency department for a chief complaint of needle stick injury one hour ago. Patient was drawing blood in the emergency department when she accidentally stuck her thumb. Patient denies any symptoms at this time. Patients blood was drawn for testing per protocol. Patient does not want any prophylactic testing. Source is known. Vitals are within normal limits. Physical exam unremarkable. There is a small needle stick injury in the right thumb. Patient will follow-up with [facility]. She is aware she can return to the emergency Department if she has any worsening symptoms. She will also follow up with primary care. Disposition Clinical Impression: Needle stick injury of finger Disposition: HOME SELF-CARE Condition: Good Instructions: Needle Stick Injuries (ED) Additional Instructions: Please monitor for any signs of infection. Follow-up with [facility] and primary care in 1-2 days. Return to the emergency department if you develop any signs of infection or other symptoms. Is patient prescribed a controlled substance at d/c from ED?: No Referrals: Lion Rondon Jr, DO [Primary Care Provider] - 1-2 days Time of Disposition: 23:18
== END 2018-02-07 23:15 | disposition home or self-care (01) ==
LOC: EC 22:01
DX: S69.91XA Unspecified injury of right wrist, hand and finger(s), initial encounter (principal); F32.9 Major depressive disorder, single episode, unspecified; F41.9 Anxiety disorder, unspecified; F17.200 Nicotine dependence, unspecified, uncomplicated; Z79.899 Other long term (current) drug therapy; W46.0XXA Contact with hypodermic needle, initial encounter; Y99.0 Civilian activity done for income or pay
CPT/HCPCS: 99282

== ENCOUNTER → 2018-08-31 | Outpatient (CLI) | payer MEDICAID ==
[2018-09-02 10:33] LABS: Gliadin AB IgA, Unit 1.4 U/mL
== END ==
LOC: LABWHC1 09:50
PROVIDERS: ATTEND Surgery
DX: R19.7 Diarrhea, unspecified (principal)
CPT/HCPCS: 36415; 83516

== ENCOUNTER → 2018-10-21 | Outpatient (CLI) | payer MEDICAID ==
--- NOTE | 2018-10-21 14:27 | US ---
EXAMINATION TYPE: US pelvis complete transvag DATE OF EXAM: 10/21/2018 COMPARISON: CT 09/10/2017 CLINICAL HISTORY: N92.0 Mennorrhagia with regular cycle. TECHNIQUE: . Transabdominal sonographic images of the pelvis were acquired. Transvaginal sonographi c images were medically necessary to better assess the following anatomy: Uterus and ovaries Date of LMP: 6 days ago EXAM MEASUREMENTS: Uterus: 8.4 x 4.6 x 5.1 cm Endometrial Stripe: 0.5 cm Right Ovary: 2.0 x 0.9 x 1.4 cm Left Ovary: 2.3 x 1.3 x 2.1 cm 1. Uterus: Anteverted Heterogeneous myometrium. Within the cervix/lower uterine segment, there is an anechoic area with echogenic debris visualized measuring 0.8 x 0.9 x 0.9 cm 2. Endometrium: wnl 3. Right Ovary: wnl 4. Left Ovary: wnl, two follicles visualized 5. Bilateral Adnexa: wnl 6. Posterior cul-de-sac: wnl Urinary bladder is sonolucent. Posterior wall is normal. Within the lower uterine segment there is a hypoechoic collection. There is a rounded echogenic area with central hypoechoic area somewhat hazy appearance of the yolk sac. Correlation with beta-hCG is r ecommended. Differential could include polyp. Blood returned be considered. IMPRESSION: 1. There is a hypoechoic collection in the lower uterine segment adjacent to the cervical canal. Gest ational sac is not excluded. Correlation with beta-hCG is recommended. This could be debris or polyp in this region.
== END ==
LOC: RADUSWWP 12:05
PROVIDERS: ATTEND Obstetrics & Gynecology
DX: R93.49 Abnormal radiologic findings on diagnostic imaging of other urinary organs (principal)
CPT/HCPCS: 76830; 76856

== ENCOUNTER → 2018-10-22 | Outpatient (CLI) | payer MEDICAID | END | disposition home or self-care (01) | LOC: LABWHC1 09:14 | PROVIDERS: ATTEND Obstetrics & Gynecology | DX: N93.8 Other specified abnormal uterine and vaginal bleeding (principal); R93.89 Abnormal findings on diagnostic imaging of other specified body structures | CPT/HCPCS: 36415; 84702 ==

== ENCOUNTER → 2018-11-15 | Outpatient (CLI) | payer MEDICAID ==
[2018-11-15 11:35] LABS: Basophils # (A) 0.1 k/uL (0-0.2); Basophils % (A) 1 %; Eosinophils # (A) 0.3 k/uL (0-0.7); Eosinophils % (A) 5 %; HCT 37.7 % (34.0-46.0); HGB 11.5 gm/dL (11.4-16.0); Hypochromasia Slight; Lymphocytes % (A) 31 %; MCH 25.5 pg (25.0-35.0); MCHC 30.4 g/dL (31.0-37.0); MCV 83.8 fL (80.0-100.0); Mean Platelet Volume 6.8; Monocytes # (A) 0.5 k/uL (0-1.0); Monocytes % (A) 8 %; Neutrophils # (A) 3.4 k/uL (1.3-7.7); Neutrophils % (A) 52 %; Platelet Count 371 k/uL (150-450); RDW 15.9 % (11.5-15.5); WBC 6.4 k/uL (3.8-10.6)
== END | disposition home or self-care (01) ==
LOC: LABPAT 11:07
PROVIDERS: ATTEND Obstetrics & Gynecology
DX: Z01.818 Encounter for other preprocedural examination (principal)
CPT/HCPCS: 36415; 85025

== ENCOUNTER 2018-11-19 07:53 | Day surgery (SDC) | payer MEDICAID ==
[2018-11-13 14:27] VITALS: BMI 24.5
--- NOTE | 2018-11-18 20:01 | P.HPOB ---
History of Present Illness H&P Date: 11/18/18 Chief Complaint: Menorrhagia with irregular cycle This is a 48-year-old female 8 para 0 who presents for dilation and curettage hysteroscopy and NovaSure endometrial ablation due to menorrhagia with irregular cycle. She complains of heavy menses to where she bleeds through her clothing, painful menses, and irregular menses. She also has been experiencing abdominal cramping. Her pelvic ultrasound showed a uterus measuring 8.4 x 4.6 x 5.1 cm with an endometrial stripe thickness of 5 mm. Myometrium was heterogeneous with an anechoic area within the lower uterine segment/cervix with debris measuring 0.9 cm. Left ovary showed 2 small follicles in the right ovary appeared normal. She has had a tubal ligation. Obstetrical history: . History of 3 miscarriages and 5 ectopic pregnancies. Gynecologic history: She does have a history of herpes with no recent outbreaks. She also has a history of a tubal ligation. Social history: She is . She works as an RN. Review of Systems Constitutional: Reports night sweats, Reports weight gain, Denies chills, Denies fever Eyes: denies blurred vision, denies pain Ears, nose, mouth and throat: Denies headache, Denies sore throat Cardiovascular: Denies chest pain, Denies shortness of breath Respiratory: Denies cough Gastrointestinal: Reports abdominal pain, Reports bloating, Reports constipation, Reports diarrhea Genitourinary: Reports dysmenorrhea, Reports menorrhagia, Reports pelvic pain, Reports stress incontinence Menstruation: Reports period heavy Musculoskeletal: Denies myalgias Integumentary: Denies pruritus, Denies rash Neurological: Denies numbness, Denies weakness Psychiatric: Reports anxiety, Reports depression Endocrine: Denies fatigue Past Medical History Past Medical History: Asthma Additional Past Medical History / Comment(s): IBS, HEMORRHOIDS-gets rectal bleeding, past hx asthma, 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 hemorrhoidectomy Past Anesthesia/Blood Transfusion Reactions: Motion Sickness, Postoperative Nausea & Vomiting (PONV) Additional Past Anesthesia/Blood Transfusion Reaction / Comment(s): has had blood transfusion with no problems Past Psychological History: Anxiety, Depression Smoking Status: Former smoker Past Alcohol Use History: Occasional Past Drug Use History: None Reported - Past Family History Mother Family Medical History: Hypertension Medications and Allergies Home Medications Medication Instructions Recorded Confirmed Type Citalopram Hydrobromide [CeleXA] 20 mg PO HS 05/29/17 11/13/18 History LORazepam [Ativan] 0.5 mg PO TID PRN 11/13/18 11/13/18 History Allergies Allergy/AdvReac Type Severity Reaction Status Date / Time No Known Allergies Allergy Verified 11/13/18 14:19 Exam Osteopathic Statement: *. No significant issues noted on an osteopathic structural exam other than those noted in the History and Physical/Consult. HEENT: Within normal limits Heart: Regular rate and rhythm Lungs: Clear to auscultation bilaterally Abdomen: Soft, nontender Pelvic exam: Uterus is anteverted, nontender, with no adnexal masses or tenderness noted. Extremities: Negative Homans Assessment and Plan (1) Menorrhagia with irregular cycle Status: Acute Code(s): N92.1 - EXCESSIVE AND FREQUENT MENSTRUATION WITH IRREGULAR CYCLE SNOMED Code(s): 845320625 Plan: Proceed with dilation and curettage with hysteroscopy and NovaSure endometrial ablation. I have discussed the risks, benefits, and alternative therapies for the above- mentioned procedure and for both sedation/anesthesia as well as necessary blood products administration, if indicated, as they pertain to this patient. The patient has indicated her understanding and acceptance of the risks and procedures discussed.
[~2018-11-19 07:53] MED LIST changes: +DEXAMETHASONE SOD PHOSPHATE 10 MG/ML 1 ML VIAL IV ONE; +HYDROmorphone 0.5 MG/0.5 ML SYRINGE IVP PRN; +LACTATED RINGERS 1,000 ML IV SCH; +ONDANSETRON 4 MG/2 ML VIAL IVP ONE
[2018-11-19] MEDS ORDERED: LIDOCAINE 1% 20 ML VIAL (10MG/ML) FOR IV START INTRADERMA ONE (08:38)
[2018-11-19] MEDS ORDERED: SCOPOLAMINE 1.5MG/72HR PATCH TRANSDERM ONE (08:39)
[2018-11-19] MEDS ORDERED: LIDOCAINE 1% INJ 10MG/ML (20 ML MDV) ONE (09:03)
[2018-11-19] MEDS ORDERED: fentaNYL (PF) 50 MCG/ML 2 ML AMP ONE (09:03)
[2018-11-19] MEDS ORDERED: PROPOFOL 10 MG/ML 20 ML VIAL IV ONE (09:03)
[2018-11-19] MEDS ORDERED: MIDAZOLAM 2 MG/2 ML VIAL ONE (09:03)
--- NOTE | 2018-11-19 09:35 | P.OP ---
Date of Procedure: 11/19/18 Preoperative Diagnosis: Menorrhagia with irregular cycle Postoperative Diagnosis: Same Procedure(s) Performed: Dilation and curettage with hysteroscopy and NovaSure endometrial ablation Anesthesia: other (LMA general) Surgeon: Rosana Feldman Estimated Blood Loss (ml): 5 Pathology: other (Endometrial curettings) Condition: stable Disposition: same day Indications for Procedure: This is a 48-year-old female 8 para 0 who presents for dilation and curettage hysteroscopy and NovaSure endometrial ablation due to menorrhagia with irregular cycle. She complains of heavy menses to where she bleeds through her clothing, painful menses, and irregular menses. She also has been experiencing abdominal cramping. Her pelvic ultrasound showed a uterus measuring 8.4 x 4.6 x 5.1 cm with an endometrial stripe thickness of 5 mm. Myometrium was heterogeneous with an anechoic area within the lower uterine segment/cervix with debris measuring 0.9 cm. Left ovary showed 2 small follicles in the right ovary appeared normal. She has had a tubal ligation. Operative Findings: Uterus is mid position, sounded to 8 cm. Cervix is sounded to 3 cm. Upon hysteroscopy, an endometrial polyp is noted to be in the right fundal region. Endometrium otherwise appears normal. Both tubal ostia are visualized. A moderate amount of endometrial curettings are obtained. Description of Procedure: The patient is taken to the operating room. She is placed in the dorsal lithotomy position after general anesthesia was given. She is prepped and draped in the normal sterile fashion. Bladder is drained with a catheter and then removed. Pelvic exam is performed under anesthesia. Uterus is found to be mid position with no adnexal masses. She is placed in slight Trendelenburg position. A right angle retractor is used to visualize the cervix. The anterior lip of the cervix is grasped with a single-tooth tenaculum. Cervix is sounded to 3 cm. Uterus is sounded to 8.5 cm. Cervix is gently dilated with Nugent dilators until a hysteroscope could be passed. Hysteroscopy is performed using normal saline. The above noted findings are noted. Next a polyp forceps is introduced. A minimal amount of tissue was obtained. Next medium-sized size sharp curette was placed. A moderate amount of endometrial curettings were obtained. The polyp forceps was reintroduced and the previously visualized polyp was easily removed. Next NovaSure array was inserted into the endometrial cavity. Length was set at 5.5 cm and width was determined to be 3.8 cm. Next cavity assessment was completed and passed on the first try. Next NovaSure array was fired at 115 W for 78 seconds. Next the array was removed, inspected and then discarded. Next the hysteroscope was reinserted. Uniform charring was noted. Pictures were taken. Hysteroscope was removed. Single-tooth tenaculum was removed from the anterior lip of the cervix. Minimal bleeding was noted. All other instruments removed from the vagina. Sponge counts were correct. Nate lalo is taken to recovery room in stable condition.
[2018-11-19] MEDS ORDERED: KETOROLAC 30 MG/ML 1 ML VIAL IVP ONE (09:45)
[2018-11-19 09:48] VITALS: RESP 16; TEMP 97.2
[2018-11-19 10:45] VITALS: BP 125/82; PULSE 60
== END 2018-11-19 11:10 | disposition home or self-care (01) ==
LOC: OR 07:53
PROVIDERS: ATTEND Obstetrics & Gynecology
DX: N92.0 Excessive and frequent menstruation with regular cycle (principal); D25.0 Submucous leiomyoma of uterus; Z90.49 Acquired absence of other specified parts of digestive tract; Z87.891 Personal history of nicotine dependence; F32.9 Major depressive disorder, single episode, unspecified; F41.9 Anxiety disorder, unspecified; Z79.899 Other long term (current) drug therapy
CPT/HCPCS: 81025; 88305; 58563; J2250; J1100; J2405; J2001; J3010; J1885; J2704

== ENCOUNTER → 2019-03-10 | Outpatient (CLI) | payer MEDICAID ==
[2019-03-10 09:52] LABS: Basophils # (A) 0.1 k/uL (0-0.2); Basophils % (A) 1 %; Eosinophils # (A) 0.3 k/uL (0-0.7); Eosinophils % (A) 3 %; HCT 47.5 % (34.0-46.0); HGB 14.7 gm/dL (11.4-16.0); Lymphocytes # (A) 2.1 k/uL (1.0-4.8); Lymphocytes % (A) 25 %; MCH 27.1 pg (25.0-35.0); MCHC 30.9 g/dL (31.0-37.0); MCV 87.6 fL (80.0-100.0); Mean Platelet Volume 6.9; Monocytes # (A) 0.6 k/uL (0-1.0); Monocytes % (A) 7 %; Neutrophils # (A) 5.5 k/uL (1.3-7.7); Neutrophils % (A) 64 %; Platelet Count 432 k/uL (150-450); RBC 5.42 m/uL (3.80-5.40); RDW 15.5 % (11.5-15.5); WBC 8.6 k/uL (3.8-10.6)
[2019-03-10 16:19] LABS: Vitamin D 25 Hydroxy 23.6 ng/mL (30.0-100.0)
[2019-03-10 16:22] LABS: Folate, Serum 18.8 ng/mL
[2019-03-10 16:26] LABS: Albumin 4.7 g/dL (3.80-4.90); Albumin/Globulin Ratio 1.88 (1.60-3.17); BUN/Creat Ratio 13.33 Ratio (12.00-20.00); Calcium 9.9 mg/dL (8.7-10.3); Globulin 2.5 g/dL (1.6-3.3); LDL Cholesterol,Calculated 99.6 mg/dL (0.0-131.0); Potassium 4.3 mmol/L (3.5-5.5); Total Bilirubin 0.9 mg/dL (0.3-1.2); Total Protein 7.2 g/dL (6.2-8.2); VLDL Calculation 55.4 mg/dL (5.00-40.00)
[2019-03-10 17:08] LABS: Hemoglobin A1C 5.7 % (4.0-6.0)
== END | disposition home or self-care (01) ==
LOC: LABWHC1 09:04
PROVIDERS: ATTEND Family Medicine
DX: Z00.00 Encounter for general adult medical examination without abnormal findings (principal)
CPT/HCPCS: 36415; 80053; 80061; 82306; 82607; 82670; 82746; 83001; 83036; 84443; 85025

== ENCOUNTER 2019-06-10 11:16 | Day surgery (SDC) | payer MEDICAID ==
[2019-06-06 09:53] VITALS: BMI 23.9
[~2019-06-10 11:16] MED LIST changes: +LIDOCAINE 1% 20 ML VIAL (10MG/ML) FOR IV START INTRADERMA PRN; +MIDAZOLAM 2 MG/2 ML VIAL IV PRN; +SCOPOLAMINE 1.5MG/72HR PATCH TRANSDERM ONE
[2019-06-10 11:49] LABS: Glucose,Whole Blood 87 mg/dL (75-99)
[2019-06-10] MEDS ORDERED: MIDAZOLAM 2 MG/2 ML VIAL ONE (12:13)
[2019-06-10] MEDS ORDERED: LIDOCAINE 1% INJ 10MG/ML (20 ML MDV) ONE (12:13)
[2019-06-10] MEDS ORDERED: fentaNYL (PF) 50 MCG/ML 2 ML AMP ONE (12:13)
[2019-06-10] MEDS ORDERED: PROPOFOL 10 MG/ML 20 ML VIAL IV ONE (12:13)
[2019-06-10] MEDS ORDERED: BUPIVACAINE (PF) 0.25% 30 ML VIAL SQ ONE (12:47)
--- NOTE | 2019-06-10 13:11 | P.OP ---
Date of Procedure: 06/10/19 Preoperative Diagnosis: Perianal fistula Postoperative Diagnosis: Perianal fistula Procedure(s) Performed: Rectal exam under anesthesia, fistulotomy Anesthesia: JOSAFAT Surgeon: Michelle Cope Estimated Blood Loss (ml): 5 Pathology: other Condition: stable Disposition: PACU Indications for Procedure: The patient presented with a recurrent perianal fistula Description of Procedure: The patient's taken the operative suite where she is prepped and draped in usual sterile manner under general endotracheal anesthetic. Digital rectal exam is carried out. Anoscope is inserted no areas are examined. A crypt hook is used to find a internal opening in the left posterior lateral position tracking to the skin. The fistula was very superficial. No involvement of the sphincter. A grooved probe was then placed through the external opening through to the inte rnal opening. The skin is infiltrated a local anesthetic. A skin incision is made over top opening the fistula. The base of the fistula was sharply divided. The rest the anal canal was examined and perianal skin and no other fistulas are noted. The patient's taken recovery room in satisfactory condition. According to or personnel, WERE correct. Plan - Discharge Summary New Discharge Prescriptions: New HYDROcodone/APAP 5-325MG [[place] 5-325] 1 - 2 tab PO Q4H PRN #30 tab PRN Reason: Pain Dibucaine [Nupercainal] 60 gm RC Q3-4H PRN #1 oint...g. PRN Reason: Pain No Action Citalopram Hydrobromide [CeleXA] 20 mg PO HS LORazepam [Ativan] 0.5 mg PO TID PRN PRN Reason: takes hs for sleep Discharge Medication List Citalopram Hydrobromide [CeleXA] 20 mg PO HS 05/29/17 [History] LORazepam [Ativan] 0.5 mg PO TID PRN 11/13/18 [History] Dibucaine [Nupercainal] 60 gm RC Q3-4H PRN #1 oint...g. 06/10/19 [Rx] HYDROcodone/APAP 5-325MG [[place] 5-325] 1 - 2 tab PO Q4H PRN #30 tab 06/10/19 [Rx] Follow up Appointment(s)/Referral(s): Michelle Cope DO [Doctor of Osteopathic Medicine] - 2 Weeks Patient Instructions/Handouts: *Surgery [facility] - Scopalamine Patch Instructions Activity/Diet/Wound Care/Special Instructions: Incision in tub of warm water or use a sitz bath 2-3 times per day. Use a stool softener daily to prevent constipation. Goal is 1-2 soft bowel movements per day. Use wet wipes after a bowel movement. Expect a small amount of drainage. Follow-up in 2 weeks. Call if questions or concerns. Discharge Disposition: HOME SELF-CARE
[2019-06-10 13:22] VITALS: RESP 16; TEMP 97
[2019-06-10 14:04] VITALS: BP 110/74; PULSE 64
== END 2019-06-10 14:49 | disposition home or self-care (01) ==
LOC: OR 11:16
PROVIDERS: ATTEND Surgery
DX: K60.3 Anal fistula (principal); F41.9 Anxiety disorder, unspecified; Z90.49 Acquired absence of other specified parts of digestive tract; K58.9 Irritable bowel syndrome, unspecified; Z82.49 Family history of ischemic heart disease and other diseases of the circulatory system; Z79.899 Other long term (current) drug therapy; Z87.19 Personal history of other diseases of the digestive system; F32.9 Major depressive disorder, single episode, unspecified; F17.200 Nicotine dependence, unspecified, uncomplicated
CPT/HCPCS: 81025; 46270; J2250; J1100; J2405; J2001; J3010; J2704

== ENCOUNTER → 2020-02-12 | Outpatient (CLI) | payer MEDICAID | END | disposition home or self-care (01) | LOC: LABWHC1 09:53 | PROVIDERS: ATTEND Surgery | DX: Z11.59 Encounter for screening for other viral diseases (principal) ==

== ENCOUNTER 2020-02-17 10:10 | Day surgery (SDC) | payer MEDICAID ==
[2020-02-12 14:00] VITALS: BMI 23.5
[~2020-02-17 10:10] MED LIST changes: -DEXAMETHASONE SOD PHOSPHATE 10 MG/ML 1 ML VIAL IV ONE; -HYDROmorphone 0.5 MG/0.5 ML SYRINGE IVP PRN; +LIDOCAINE 1% (10MG/ML) FOR IV START INTRADERMA PRN; -LIDOCAINE 1% 20 ML VIAL (10MG/ML) FOR IV START INTRADERMA PRN; -MIDAZOLAM 2 MG/2 ML VIAL IV PRN; -ONDANSETRON 4 MG/2 ML VIAL IVP ONE; -Pre Op ABX Message 1 EACH MISC MISCELLANE ONE; -SCOPOLAMINE 1.5MG/72HR PATCH TRANSDERM ONE
[2020-02-17 10:51] VITALS: RESP 16; TEMP 97.6
[2020-02-17] MEDS ORDERED: PROPOFOL 10 MG/ML 20 ML VIAL IV ONE (11:24)
--- NOTE | 2020-02-17 11:51 | P.PCN ---
Date of Procedure: 02/17/20 Preoperative Diagnosis: Left lower quadrant pain Postoperative Diagnosis: Left lower quadrant abdominal pain Anesthesia: MAC Pathology: other Condition: stable Disposition: PACU Indications for Procedure: Patient presented with complaints of left lower quadrant pain blood and mucus with bowel movement patient thought she was told that had diverticulosis in the past. Description of Procedure: The patient's taken to the endoscopy suite where colonoscope is passed per rectum to the terminal ileum. The prep was good. There was some granular material which is easily irrigated and aspirated. The villous pattern of the terminal ileum appeared normal. Couple of cold biopsies were obtained. The mucosa of the colon appeared unremarkable. No evidence of colitis or inflammatory change. No evidence of diverticulosis no evidence of polyp, mass lesion, other mucosal abnormality. There were some internal hemorrhoids which were small on retroflexion of the scope. She tolerated the procedure without difficulty and is taken recovery room in satisfactory condition. I will Order some celiac testing as she does have some complaints of diarrhea. Repeat colonoscopy in 10 years Plan - Discharge Summary New Discharge Prescriptions: No Action Citalopram Hydrobromide [CeleXA] 20 mg PO HS Multivitamins, Thera [Multivitamin (formulary)] 1 tab PO DAILY Cholecalciferol [Vitamin D3 (25 Mcg = 1000 Iu)] 1,000 unit PO DAILY LORazepam [Ativan] 1 - 2 mg PO HS PRN PRN Reason: Insomnia Vitamin E 400 unit PO DAILY Biotin 5 mg PO DAILY Discharge Medication List Citalopram Hydrobromide [CeleXA] 20 mg PO HS 05/29/17 [History] Biotin 5 mg PO DAILY 02/12/20 [History] Cholecalciferol [Vitamin D3 (25 Mcg = 1000 Iu)] 1,000 unit PO DAILY 02/12/20 [History] LORazepam [Ativan] 1 - 2 mg PO HS PRN 02/12/20 [History] Multivitamins, Thera [Multivitamin (formulary)] 1 tab PO DAILY 02/12/20 [History] Vitamin E 400 unit PO DAILY 02/12/20 [History] Discharge Disposition: HOME SELF-CARE
[2020-02-17 12:22] VITALS: BP 122/76; PULSE 63
[2020-02-17 21:16] LABS: Gliadin AB IgA, Deaminated NEGATIVE (NEGATIVE); Gliadin AB IgA, Unit 0.7 U/mL; Gliadin AB IgG, Deaminated NEGATIVE (NEGATIVE)
== END 2020-02-17 12:38 | disposition home or self-care (01) ==
LOC: ORWHC2ENDO 10:10
PROVIDERS: ATTEND Surgery
DX: K64.8 Other hemorrhoids (principal); R10.32 Left lower quadrant pain; K92.1 Melena; R19.7 Diarrhea, unspecified; Z90.49 Acquired absence of other specified parts of digestive tract; F17.210 Nicotine dependence, cigarettes, uncomplicated; F32.9 Major depressive disorder, single episode, unspecified; F41.9 Anxiety disorder, unspecified; Z98.890 Other specified postprocedural states; Z82.49 Family history of ischemic heart disease and other diseases of the circulatory system; K57.90 Diverticulosis of intestine, part unspecified, without perforation or abscess without bleeding; Z79.899 Other long term (current) drug therapy
CPT/HCPCS: 81025; 88305; 83516 ×4; 45380; J2704

== ENCOUNTER → 2020-05-27 | Outpatient (CLI) | payer MEDICAID ==
[2020-05-28 01:17] LABS: T4, Free (Free Thyroxine) 1.2 ng/dL (0.80-1.80)
== END | disposition home or self-care (01) ==
LOC: LABWHC1 15:37
PROVIDERS: ATTEND Obstetrics & Gynecology
DX: Z13.29 Encounter for screening for other suspected endocrine disorder (principal)
CPT/HCPCS: 36415; 84439; 84443

== ENCOUNTER → 2020-08-12 | Outpatient (CLI) | payer MEDICAID, OTHER ==
--- NOTE | 2020-08-12 09:47 | US ---
EXAMINATION TYPE: US pelvis complete transvag DATE OF EXAM: 08/12/2020 COMPARISON: 10/21/2018 CLINICAL HISTORY: 49-year-old female R10.9 Pain. LLQ pain x 6 months and increasing in frequency; end ometrial ablation 2019; A3, ectopic pregnancies x 5; AUB since endometrial ablation TECHNIQUE: Transabdominal sonographic images of the pelvis were acquired. Transvaginal sonographic i mages were medically necessary to better assess the following anatomy: endometrium. Date of LMP: 07/25/2020 FINDINGS: EXAM MEASUREMENTS: Uterus: 7.3 x 3.9 x 4.4 cm Endometrial Stripe: 0.6 cm Right Ovary: 1.8 x 1.9 x 1.7 cm Left Ovary: 2.1 x 1.5 x 1.2 cm 1. Uterus: Anteverted; heterogeneous appearance; round focal fibroid in the left paramedian posterio r uterine body that has an intramural location measuring 1.9 x 1.8 x 1.5cm 2. Endometrium: upper endometrial irregular fluid area noted measuring 1.1 x 1.4 x 1.2cm 3. Right Ovary: appears wnl 4. Left Ovary: appears wnl Spectral, color and waveform Doppler imaging shows good arterial and venous flow within the ovaries ; there is no evidence for ovarian torsion. 5. Bilateral Adnexa: wnl 6. Posterior cul-de-sac: wnl IMPRESSION: 1. An area of irregular fluid along the fundal endometrium measuring 1.4 cm. Focal hematometra from r esidual endometrial tissue after ablation and an endometrial lesion are both differential considerati ons. Further FITTING ROOM ATTENDANT evaluation recommended. 2. A 1.9 cm posterior uterine body fibroid. 3. No sonographic evidence for ovarian torsion.
== END | disposition home or self-care (01) ==
LOC: RADUSWWP 07:16
PROVIDERS: ATTEND Family Medicine
DX: D25.9 Leiomyoma of uterus, unspecified (principal); N85.8 Other specified noninflammatory disorders of uterus; N85.7 Hematometra
CPT/HCPCS: 76830; 76856

== ENCOUNTER → 2020-10-15 | Outpatient (CLI) | payer OTHER ==
--- NOTE | 2020-10-18 10:26 | MM ---
Reason for exam: screening (asymptomatic). Last mammogram was performed 13 years and 1 month ago. History: Patient is postmenopausal. Family history of breast cancer in aunt. Pre-pectoral saline implants in both breasts, 2004. Physical Findings: A clinical breast exam by your physician is recommended on an annual basis and results should be correlated with mammographic findings. MG Screening Mammo Implant/CAD Bilateral CC and MLO view(s) were taken. Prior study comparison: December 17, 2015, mammogram. August 18, 2014, mammogram. The breast tissue is extremely dense which could obscure a lesion on mammography. There is no discrete abnormality. No significant changes when compared with prior studies. ASSESSMENT: Negative, BI-RAD 1 RECOMMENDATION: Routine screening mammogram of both breasts in 1 year.
== END | disposition home or self-care (01) ==
LOC: RADMAMWWP 06:56
PROVIDERS: ATTEND Obstetrics & Gynecology
DX: Z12.31 Encounter for screening mammogram for malignant neoplasm of breast (principal); Z98.82 Breast implant status
CPT/HCPCS: 77067

== ENCOUNTER → 2021-06-09 | Outpatient (CLI) | payer OTHER ==
[2021-06-09 15:38] LABS: INR 0.9 (<1.2); Partial Thromboplastin Time 26.8 sec (22.0-30.0); Prothrombin Time 10.1 sec (9.0-12.0)
[2021-06-09 18:14] LABS: Basophils # (A) 0.08 X 10*3/uL (0.00-0.10); Basophils % (A) 0.8 %; HGB 14.4 g/dL (12.0-15.0); Lymphocytes # (A) 1.83 X 10*3/uL (0.90-5.00); Lymphocytes % (A) 19.1 %; MCHC 32.7 g/dL (32.0-37.0); MCV 91.7 fL (80.0-97.0); Mean Platelet Volume 10.4 fL (9.5-12.2); Monocytes # (A) 0.71 X 10*3/uL (0.20-1.00); Monocytes % (A) 7.4 %; Neutrophils # (A) 6.82 X 10*3/uL (1.80-7.70); Neutrophils % (A) 71.5 %; Platelet Count 331 X 10*3/uL (140-440); RDW 12.7 % (11.5-14.5); WBC 9.56 X 10*3/uL (4.50-10.00)
[2021-06-11 15:19] LABS: Cotinine <2.0 ng/mL (<2.0); Nicotine <2.0 ng/mL (<2.0)
== END | disposition home or self-care (01) ==
LOC: LABWHC1 14:30
PROVIDERS: ATTEND Otolaryngology
DX: Z01.812 Encounter for preprocedural laboratory examination (principal); A63.8 Other specified predominantly sexually transmitted diseases
CPT/HCPCS: 36415; 80074; 80076; 80323; 85025; 85610; 85730; 86706; 86787; 87390

== ENCOUNTER → 2021-06-21 | Outpatient (CLI) | payer OTHER ==
[2021-06-21 15:09] LABS: Albumin/Globulin Ratio 1.4; Bilirubin,Unconjugated 0.8 mg/dL (0.0-1.1); Globulin 2.8 g/dL; Total Protein 6.8 g/dL (6.3-8.2)
[2021-06-22 13:56] LABS: Hepatitis B Surface Antigen Nonreactive (Nonreactive)
[2021-06-22 15:28] LABS: HIV 2 AB Non-Reactive (Non-Reactive); HIV AB P24 Non-Reactive (Non-Reactive); HIV P24 AG Non-Reactive (Non-Reactive)
== END | disposition home or self-care (01) ==
LOC: LABWHC1 14:12
PROVIDERS: ATTEND Otolaryngology
DX: Z01.812 Encounter for preprocedural laboratory examination (principal); Z20.822 Contact with and (suspected) exposure to COVID-19; A63.8 Other specified predominantly sexually transmitted diseases
CPT/HCPCS: 36415; 80076; 86787; 87340; 87390; 87635

== ENCOUNTER → 2021-08-14 | Outpatient (CLI) | payer OTHER | END | disposition home or self-care (01) | LOC: LABWHC1 14:17 | PROVIDERS: ATTEND Emergency Medicine | DX: Z20.822 Contact with and (suspected) exposure to COVID-19 (principal) | CPT/HCPCS: 87635 ==

== ENCOUNTER → 2021-08-15 | Outpatient (CLI) | payer OTHER | END | disposition home or self-care (01) | LOC: LABWHC1 14:39 | PROVIDERS: ATTEND Emergency Medicine | DX: Z20.822 Contact with and (suspected) exposure to COVID-19 (principal) | CPT/HCPCS: 87635 ==